=== PATIENT | male | born 1940 | race Hispanic/Latino ===

== ENCOUNTER 2017-02-05 01:36 | Inpatient (IN) | payer MEDICARE ==
[~2017-02-05] VITALS: Ht 172.7 cm; Wt 64.9 kg
[2017-02-05] MEDS ORDERED: IPRATROPIUM/ALBUTEROL SULFATE 3 ML SOLUTION IH ONE ×3 (01:38→02:23)
[2017-02-05 02:06] LABS: BASOPHILS % (AUTO) 1.8 % (0.0-5.0); EOSINOPHILS % (AUTO) 2.9 % (0.0-8.0); HEMATOCRIT 42.2 % (42-54); MEAN CORPUSCULAR HEMOGLOBIN 28.1 pg (27.0-33.0); MEAN CORPUSCULAR HGB CONC 33.4 g/dL (32.0-36.0); MEAN CORPUSCULAR VOLUME 84.3 fL (79-99); MONOCYTES % (AUTO) 6.4 % (3.0-13.0); NEUTROPHILS % (AUTO) 85.9 % (40.0-77.0); PLATELET COUNT (AUTO) 211 K/uL (130-400); RED BLOOD CELL COUNT(AUTO) 5.01 MIL/uL (4.50-6.20); RED CELL DISTRIBUTION WIDTH 13.2 % (11.0-15.5); WHITE BLOOD COUNT (AUTO) 9.4 K/uL (4.8-10.8)
[2017-02-05 02:12] LABS: CREATININE 1.4 mg/dL (0.5-1.5); POTASSIUM 3.4 mmol/L (3.5-5.1)
[2017-02-05] MEDS ORDERED: METHYLPREDNISOLONE SOD SUCC 125MG/2ML VIAL ONE (02:15)
[2017-02-05 02:17] LABS: ALBUMIN 3.4 g/dL (3.5-5.0); BILIRUBIN,TOTAL 0.5 mg/dL (0.2-1.0); TOTAL PROTEIN, SERUM 7.6 g/dL (6.0-8.3)
[2017-02-05 02:19] LABS: BILIRUBIN,URINE Negative (NEGATIVE); COLOR,URINE Dark Yellow (YELLOW); GLUCOSE, URINE (UA) Negative (NEGATIVE); KETONES,URINE 15 mg/dL (NEGATIVE); LEUKOCYTE ESTERASE ,URINE Negative (NEGATIVE); NITRATE,URINE Negative (NEGATIVE); OCCULT BLOOD,URINE Moderate (NEGATIVE); PROTEIN,URINE POS 2+ (NEGATIVE)
[2017-02-05 02:21] LABS: APPEARANCE,URINE CLEAR (CLEAR)
[2017-02-05 02:30] LABS: CREATINE KINASE MB 6.9 ng/mL (0.5-3.6); TROPONIN I 0.14 ng/mL (0.00-0.06)
[2017-02-05 02:40] LABS: BACTERIA,URINE Few /HPF (None Seen); MUCUS,URINE Rare LPF (None Seen)
[2017-02-05] MEDS ORDERED: METHYLPREDNISOLONE SOD SUCC 40MG/ML 1ML ONE ×2 (08:09→14:00)
[2017-02-05] MEDS ORDERED: FAMOTIDINE 20MG TAB 20 MG TAB ONE (08:10)
[2017-02-05] MEDS ORDERED: ENOXAPARIN SODIUM 40 MG/0.4 ML SYRINGE SQ ONE (08:10)
[2017-02-05] MEDS ORDERED: CEFTRIAXONE SODIUM 1 GM ONE (08:10)
[2017-02-05] MEDS ORDERED: AZITHROMYCIN 500MG+NS 250ML 250 ML IV ONE (08:10)
[2017-02-05] MEDS ORDERED: SODIUM CHLORIDE 0.9% 50 ML IV ONE (08:11)
[2017-02-05] MEDS ORDERED: CEFTRIAXONE 1GM/D5W 50ML 50 ML IV SCH (13:15)
[2017-02-05] MEDS: AZITHROMYCIN 500MG+NS 250ML 250 ML IV SCH (13:15)
[2017-02-05] MEDS: METHYLPREDNISOLONE SOD SUCC 40MG/ML 1ML IVP SCH ×2 (14:00→20:38)
[2017-02-05] MEDS: CEFTRIAXONE SODIUM 1 GM IVP SCH (14:00)
[2017-02-05 14:38] LABS: CREATINE KINASE MB 6.6 ng/mL (0.5-3.6); CREATINE KINASE, TOTAL 125 U/L (21-232); MYOGLOBIN 99 ng/mL (10-92); TROPONIN I < 0.04 ng/mL (0.00-0.06)
[2017-02-05 14:44] VITALS: BP 133/64
[2017-02-05 19:00] VITALS: BP 138/80
[2017-02-05] MEDS: IPRATROPIUM/ALBUTEROL SULFATE 3 ML SOLUTION IH SCH ×2 (19:02→23:51)
[2017-02-05 21:40] LABS: CREATINE KINASE MB 4.9 ng/mL (0.5-3.6); CREATINE KINASE, TOTAL 110 U/L (21-232); MYOGLOBIN 231 ng/mL (10-92); TROPONIN I < 0.04 ng/mL (0.00-0.06)
[2017-02-05 23:53] VITALS: BP 126/66
[2017-02-06] MEDS: METHYLPREDNISOLONE SOD SUCC 40MG/ML 1ML IVP SCH ×2 (03:31→09:45)
[2017-02-06 03:52] VITALS: BP 108/59
[2017-02-06 05:14] LABS: CREATININE 1.3 mg/dL (0.5-1.5); POTASSIUM 3.4 mmol/L (3.5-5.1)
[2017-02-06 05:23] LABS: BASOPHILS % (AUTO) 0.1 % (0.0-5.0); HEMATOCRIT 37.7 % (42-54); LYMPHOCYTES % (AUTO) 5.9 % (21.0-51.0); MEAN CORPUSCULAR HEMOGLOBIN 29.1 pg (27.0-33.0); MEAN CORPUSCULAR HGB CONC 34.9 g/dL (32.0-36.0); MEAN CORPUSCULAR VOLUME 83.4 fL (79-99); MONOCYTES % (AUTO) 6.4 % (3.0-13.0); NEUTROPHILS % (AUTO) 87.6 % (40.0-77.0); PLATELET COUNT (AUTO) 223 K/uL (130-400); RED BLOOD CELL COUNT(AUTO) 4.52 MIL/uL (4.50-6.20); RED CELL DISTRIBUTION WIDTH 13.4 % (11.0-15.5)
[2017-02-06] MEDS ORDERED: MEDROL DAY 1 BREAKFAST PO NR (07:30)
[2017-02-06] MEDS: IPRATROPIUM/ALBUTEROL SULFATE 3 ML SOLUTION IH SCH ×3 (07:31→18:50)
[2017-02-06 07:43] VITALS: BP 123/67
[2017-02-06] MEDS: FAMOTIDINE 20MG TAB 20 MG TAB PO SCH (09:45)
[2017-02-06] MEDS: ENOXAPARIN SODIUM 30 MG/0.3 ML SQ SCH (09:46)
[2017-02-06 11:00] VITALS: BP 123/57
[2017-02-06] MEDS ORDERED: PHARMACY COMMUNICATION MISC SCH (11:00)
[2017-02-06] MEDS ORDERED: WATER FOR INJECTION,STERILE 5 ML VIAL ONE (12:34)
[2017-02-06] MEDS: AZITHROMYCIN 500MG+NS 250ML 250 ML IV SCH (12:35)
[2017-02-06] MEDS: MEDROL DAY 1 LUNCH AND DINNER PO NR ×2 (12:35→17:09)
[2017-02-06] MEDS: CEFTRIAXONE SODIUM 1 GM IVP SCH (12:36)
[2017-02-06 16:00] VITALS: BP 120/65
[2017-02-06] MEDS ORDERED: ALPRAZOLAM 0.25 MG TABLET PO PRN (17:45)
[2017-02-06 19:53] VITALS: BP 127/84
[2017-02-06] MEDS ORDERED: MEDROL DAY1 HS PO NR (21:00)
[2017-02-07] VITALS: BP 130/63
[2017-02-07] MEDS: IPRATROPIUM/ALBUTEROL SULFATE 3 ML SOLUTION IH SCH ×4 (00:10→19:02)
[2017-02-07 04:00] VITALS: BP 126/62
[2017-02-07 04:15] LABS: BASOPHILS % (AUTO) 0.1 % (0.0-5.0); LYMPHOCYTES % (AUTO) 4.9 % (21.0-51.0); MEAN CORPUSCULAR HEMOGLOBIN 28.1 pg (27.0-33.0); MEAN CORPUSCULAR HGB CONC 33.6 g/dL (32.0-36.0); MEAN CORPUSCULAR VOLUME 83.5 fL (79-99); MONOCYTES % (AUTO) 6.4 % (3.0-13.0); NEUTROPHILS % (AUTO) 88.6 % (40.0-77.0); PLATELET COUNT (AUTO) 221 K/uL (130-400); RED BLOOD CELL COUNT(AUTO) 4.44 MIL/uL (4.50-6.20); RED CELL DISTRIBUTION WIDTH 13.3 % (11.0-15.5); WHITE BLOOD COUNT (AUTO) 14.2 K/uL (4.8-10.8)
[2017-02-07 04:32] LABS: CREATININE 1.2 mg/dL (0.5-1.5)
[2017-02-07 04:36] LABS: POTASSIUM 2.8 mmol/L (3.5-5.1)
[2017-02-07] MEDS ORDERED: MEDROL DAY 2 BRK PO NR (07:30)
[2017-02-07 07:36] VITALS: BP 128/59
[2017-02-07] MEDS: FAMOTIDINE 20MG TAB 20 MG TAB PO SCH (08:32)
[2017-02-07] MEDS: ENOXAPARIN SODIUM 30 MG/0.3 ML SQ SCH (08:33)
[2017-02-07] MEDS ORDERED: POTASSIUM CHLORIDE 20MEQ/100ML 100 ML IV PRN (10:15)
[2017-02-07] MEDS ORDERED: POTASSIUM CHLORIDE 10% ELIXIR 20 MEQ/15 ML UDCUP PO PRN (10:15)
[2017-02-07] MEDS ORDERED: LIDOCAINE HCL-MPF 1% 2ML VIAL IVP PRN (10:15)
[2017-02-07] MEDS ORDERED: SIMV40TA5 PO (11:12)
[2017-02-07] MEDS ORDERED: SERT100T12 PO (11:12)
[2017-02-07] MEDS ORDERED: SOLI5 PO (11:12)
[2017-02-07] MEDS ORDERED: MEMA28CA PO (11:12)
[2017-02-07] MEDS ORDERED: FOLI1TAB15 PO (11:12)
[2017-02-07] MEDS ORDERED: MEDROL DAY 2 LCH PO NR (11:30)
[2017-02-07 11:36] VITALS: BP 143/73
[2017-02-07] MEDS: POTASSIUM CHLORIDE 20 MEQ ERTAB PO PRN ×2 (12:15→17:03)
[2017-02-07] MEDS: AZITHROMYCIN 500MG+NS 250ML 250 ML IV SCH (12:16)
[2017-02-07] MEDS: CEFTRIAXONE SODIUM 1 GM IVP SCH (13:16)
[2017-02-07 15:15] VITALS: BP 138/76
[2017-02-07] MEDS ORDERED: AZIT500T PO (15:58)
[2017-02-07] MEDS ORDERED: CEFD300C3 PO (15:58)
[2017-02-07] MEDS ORDERED: METH4TAB3 PO (16:02)
[2017-02-07] MEDS ORDERED: MEDROL DAY 2 DIN PO NR (16:30)
[2017-02-07 20:00] VITALS: BP 114/51
[2017-02-07] MEDS ORDERED: MEDROL DAY 2 HS PO NR (21:00)
[2017-02-08] MEDS ORDERED: MEDROL DAY 3 PO NR (07:30)
[2017-02-09] MEDS ORDERED: MEDROL DAY 4 BKF PO NR (07:30)
[2017-02-09] MEDS ORDERED: MEDROL DAY 4 LCH PO NR (11:30)
[2017-02-09] MEDS ORDERED: MEDROL DAY 4 DIN PO NR (16:30)
[2017-02-10] MEDS ORDERED: MEDROL DAY 5 BKF PO NR (07:30)
[2017-02-10] MEDS ORDERED: MEDROL DAY 5 HS PO NR (21:00)
[2017-02-11] MEDS ORDERED: MEDROL DAY 6 PO NR (07:30)
== END 2017-02-07 22:12 | disposition home or self-care (01) | DRG 189 ==
LOC: EDH 01:36 → EDHIP 05:30 → 3BH 14:02 → 3DH 20:27
PROVIDERS: ADMIT Family Medicine; ATTEND Family Medicine
DX: J96.01 Acute respiratory failure with hypoxia (principal); R06.03 Acute respiratory distress; J44.1 Chronic obstructive pulmonary disease with (acute) exacerbation; G30.9 Alzheimer's disease, unspecified; F02.80 Dementia in other diseases classified elsewhere, unspecified severity, without behavioral disturbance, psychotic disturbance, mood disturbance, and anxiety; I10 Essential (primary) hypertension; Z68.21 Body mass index [BMI] 21.0-21.9, adult; Z87.891 Personal history of nicotine dependence
CPT/HCPCS: 36415; 70450; 71010; 80048; 80053; 81001; 82140; 82550; 82553; 83605; 83874; 84132; 84484; 85025; 87633; 87804; 93005; 94640; 94664; 99291; A4218; J0456; J0696; J1650; J2920; J2930; J3480; J3490; J7509